=== PATIENT | female | born 1990 | race Caucasian/White ===

== ENCOUNTER 2019-03-22 08:57 | Day surgery (SDC) | payer OTHER ==
[~2019-03-22] VITALS: Ht 160 cm; Wt 81.6 kg
[2019-03-22] MEDS ORDERED: BUPIVACAINE-MPF 0.25% 30 ML VIAL INJ ONE (12:02)
[2019-03-22] MEDS ORDERED: ONDANSETRON 4 MG/2 ML VIAL IV PRN (13:00)
[2019-03-22] MEDS ORDERED: HYDROcodone/APAP 5/325 MG 1 TAB TAB PO PRN (13:00)
== END 2019-03-22 13:35 | disposition home or self-care (01) ==
LOC: MDS 08:57 → MMU 08:57 → MDS 13:35
PROVIDERS: ATTEND Surgery
DX: D18.01 Hemangioma of skin and subcutaneous tissue (principal)
CPT/HCPCS: 11441; 81025; 88305; J0690; J3490; J7060; J7120